=== PATIENT | female | born 1945 | race Caucasian/White ===

== ENCOUNTER 2017-10-31 12:29 | Emergency (ER) | payer OTHER ==
[~2017-10-31] VITALS: Ht 160 cm; Wt 77.7 kg
[~2017-10-31 12:29] MED LIST: ACID CONTROL150 MG PO; ALENDRONATE SOD35 MG PO; ARICEPT10 MG PO; ASCORBIC ACID500 M3 PO; CIPRO500 MG PO; DILANTIN100 MG PO; GABAPENTIN300 MG PO; MELOXICAM7.5 MG PO; NAMENDA XR28 MG PO; REQUIP1 MG PO; VITAMIN D5000 INTUN PO; VITAMIN E400 UNIT PO
[2017-10-31 13:07] LABS: HEMATOCRIT 36.8 % (36.0-46.0); MCH 26.6 PG (29.0-34.0); MCHC 32.1 G/DL (30.0-36.0); MCV 83.1 FL (83-99); MEAN PLAT.VOLUME 8.6 uM^3 (9.5-12.4); PLATELET COUNT 322 K/uL (156-360); RBC DIS.WIDTH-CV 14.6 % (11.8-14.6); RBC DIS.WIDTH-SD 44.9 % (39-53); RED BLOOD COUNT 4.43 M/uL (3.80-5.20); WHITE BLOOD COUNT 12.1 K/uL (4.1-10.2)
[2017-10-31 13:17] LABS: CHLORIDE 106 mEq/L (99-109); POTASSIUM 3.9 mEq/L (3.7-5.4); SODIUM 139 mEq/L (136-147)
[2017-10-31 13:20] LABS: GLUCOSE 92 mg/dL (70-99)
[2017-10-31 13:21] LABS: ANION GAP 8 MEQ/L (2-14); TOTAL BILIRUBIN 0.3 mg/dL (0.0-1.0)
[2017-10-31 13:23] LABS: ALKALINE PHOSPHATASE 98 IU/L (3-129); GFR ESTIMATE (CALCULATED) > 59 mL/min/
[2017-10-31 13:24] LABS: UREA NITROGEN (BUN) 18 mg/dL (9-23)
[2017-10-31 13:25] LABS: DIRECT BILIRUBIN 0.1 mg/dL (0.0-0.3)
[2017-10-31 13:27] LABS: LIPASE 51 U/L (1.0-51.0)
[2017-10-31 13:29] LABS: TROP-I INTERPRETATION NEGATIVE; TROPONIN-I < 0.01 ng/mL (0.0-0.30)
[2017-10-31 14:31] LABS: ADD MIUA? NO; BILIRUBIN NEGATIVE; BLOOD NEGATIVE; COLOR YELLOW ((YELLOW)); GLUCOSE (STRIP) NEGATIVE; KETONES NEGATIVE; LEUKOCYTES NEGATIVE; NITRITE NEGATIVE; PROTEIN (STRIP) NEGATIVE; SPECIFIC GRAVITY 1.019 (1.000-1.030); UCUL ADDED? NO; UROBILINOGEN 0.2 MG/DL (0.2-1.0)
[2017-10-31] MEDS ORDERED: LEVAQUIN750 MG PO (15:17)
[2017-10-31 17:21] VITALS: BP 102/65
== END 2017-10-31 17:21 | disposition home or self-care (01) ==
LOC: EME 12:29
PROVIDERS: Emergency Medicine
DX: R10.11 Right upper quadrant pain (principal); J18.9 Pneumonia, unspecified organism; E78.5 Hyperlipidemia, unspecified; G62.9 Polyneuropathy, unspecified; G40.909 Epilepsy, unspecified, not intractable, without status epilepticus; F03.90 Unspecified dementia, unspecified severity, without behavioral disturbance, psychotic disturbance, mood disturbance, and anxiety; Z88.0 Allergy status to penicillin
CPT/HCPCS: 71020; 76705; 80048; 80076; 81003; 83690; 84484; 85027; 85379; 87086; 93005; 99281; 99284; J2270

== ENCOUNTER 2017-12-08 05:34 | Day surgery (SDC) | payer OTHER ==
[~2017-12-08] VITALS: Ht 160 cm; Wt 76.8 kg
[~2017-12-08 05:34] MED LIST changes: +CELEBREX200 MG PO; +ERGOCALCIF50000 UNIT PO; +LEVAQUIN750 MG PO; +REQUIP XL2 MG PO; -REQUIP1 MG PO; +REQUIP2 MG PO
[2017-12-08 07:00] VITALS: BP 122/68
[2017-12-08] MEDS ORDERED: PERCOCET 5/31 TABLET PO (08:36)
[2017-12-08] MEDS ORDERED: COLACE100 MG PO (08:36)
[2017-12-08 10:35] VITALS: BP 135/62
[2017-12-08 11:33] VITALS: BP 137/63
[2017-12-08 12:12] VITALS: BP 146/70
== END 2017-12-08 12:28 | disposition home or self-care (01) ==
LOC: SDC 05:34
PROC: 0FT44ZZ Resection of Gallbladder, Percutaneous Endoscopic Approach (ICD-10-PCS; principal; 2017-12-08)
PROC: 0FB04ZX Excision of Liver, Percutaneous Endoscopic Approach, Diagnostic (ICD-10-PCS; principal; 2017-12-08)
DX: K81.1 Chronic cholecystitis (principal); K76.89 Other specified diseases of liver; K40.90 Unilateral inguinal hernia, without obstruction or gangrene, not specified as recurrent; G40.909 Epilepsy, unspecified, not intractable, without status epilepticus; G30.9 Alzheimer's disease, unspecified; F02.80 Dementia in other diseases classified elsewhere, unspecified severity, without behavioral disturbance, psychotic disturbance, mood disturbance, and anxiety; K21.9 Gastro-esophageal reflux disease without esophagitis
CPT/HCPCS: 88304; 88305; J1100; J1170; J1885; J2001; J2405; J2710; J2795; J3010; J3475; Q0175; S0074